=== PATIENT | female | born 1940 | race Caucasian/White ===

== ENCOUNTER 2021-01-10 08:57 | Inpatient (IN) | payer MEDICARE, MEDICAID, SELFPAY ==
[2021-01-10] VITALS (9 sets, daily range): BP systolic 100–140; BP diastolic 47–67; PULSE 66–100; RESP 14–20; TEMP 36.2–39.2; O2SAT 93–98; BMI 34.4
--- NOTE | ~2021-01-10 | XR_ITS ---
EXAMINATION: XR CHEST CLINICAL INFORMATION: Fever COMPARISON: Chest radiograph 04/22/2019, 02/20/2019, 12/02/2018 TECHNIQUE: Portable upright AP view of the chest was obtained. FINDINGS: The lungs are clear and there is no airspace consolidation or groundglass opacity. With The costophrenic sulci are well-defined and there is no effusion. The heart is normal in size. The vascularity is normal. The hilar and mediastinal contours are stable. No acute bony abnormality. XR/XR chest 1V IMPRESSION: Unremarkable examination.
--- NOTE | 2021-01-10 09:33 | ED_ITS ---
HPI - Fever General Chief Complaint: Fever Stated Complaint: fever Time Seen by Provider: 01/10/21 09:26 Source: patient Mode of arrival: EMS Limitations: no limitations History of Present Illness HPI Narrative: 80 y/o female with history of Alzheimer's dementia, psychosis, diabetes, hx UTI who presents to the ED from [facility] via EMS with fever of 100.2. Per staff at [facility] she is a little slower to respond than usual but otherwise has no changes. For EMS patient had SpO2 93% so she was placed on supplemental O2 with good effect. She offers no physical complaints. She denies SOB or cough. No chest or abdominal pain. History of limited due to dementia. On arrival to the ER patient is febrile to 102.5 and hemodynamically stable. She seems to be at her baseline mental status on arrival, oriented but needs assistance with all ADL's. MD elicited complaint: fever Onset (ago): hour(s) Exacerbating factors: nothing Associated symptoms: denies other symptoms Treatments prior to arrival fever: none Related Data Home Medications Medication Instructions Recorded Confirmed acetaminophen 325 mg capsule 650 mg PO Q4H PRN 01/10/21 01/10/21 aluminum-mag hydroxide-simethicone 10 ml PO Q6H PRN 01/10/21 01/10/21 200 mg-200 mg-20 mg/5 mL oral susp (Maalox Advanced) aspirin 81 mg tablet,delayed 81 mg PO DAILY 01/10/21 01/10/21 release cyanocobalamin (vitamin B-12) 1,000 mcg PO DAILY 01/10/21 01/10/21 1,000 mcg tablet fluticasone propionate 110 2 puff INHALATION BID 01/10/21 01/10/21 mcg/actuation HFA aerosol inhaler (Flovent HFA) fluticasone propionate 50 2 spray INTRANASAL BID 01/10/21 01/10/21 mcg/actuation nasal spray,suspension folic acid 1 mg tablet 1 mg PO DAILY 01/10/21 01/10/21 gabapentin 400 mg capsule 1 cap PO BEDTIME 01/10/21 01/10/21 lurasidone 40 mg tablet (Latuda) 1 tab PO BEDTIME 01/10/21 01/10/21 lurasidone 60 mg tablet (Latuda) 1 tab PO DAILY 01/10/21 01/10/21 magnesium oxide 800 mg PO DAILY 01/10/21 01/10/21 multivitamin with minerals-ferrous 1 tab PO DAILY 01/10/21 01/10/21 sulfate 15 mg iron tablet nystatin 100,000 unit/gram topical 1 applic TOPICAL BID-TID 01/10/21 01/10/21 powder (Nystop) peg 400-propylene glycol 0.4 %-0.3 2 drp OPHTHALMIC (EYE) Q4H PRN 01/10/21 01/10/21 % eye gel drops (Systane Gel) ropinirole 0.5 mg tablet 1 tab PO BEDTIME 01/10/21 01/10/21 simvastatin 20 mg tablet 1 tab PO BEDTIME 01/10/21 01/10/21 sodium chloride 1,000 mg soluble 1,000 mg PO BID 01/10/21 01/10/21 tablet Allergies Allergy/AdvReac Type Severity Reaction Status Date / Time Penicillins Allergy Mild UNKNOWN Unverified 02/22/20 14:50 lisinopril [LISINOPRIL] Allergy Unknown COUGH Unverified 02/22/20 14:50 morphine [MORPHINE] Allergy Unknown YRS AGO ? Unverified 02/22/20 14:50 N/V penicillin V Allergy Unknown Unverified 06/05/19 00:00 celecoxib [From CELEBREX] AdvReac Unknown GI UPSET Unverified 02/22/20 14:50 Review of Systems 2 Constitutional: Constitutional: Denies chills, Reports fever(s), Denies headache(s) and Reports malaise Eyes: Eyes: Reports no additional eye complaints ENT: Denies dizziness, Denies headache(s) and Denies sore throat Cardiovascular: Cardiovascular: Denies chest pain and Denies dyspnea Respiratory: Respiratory: Denies chest congestion, Denies cough and Denies dyspnea Gastrointestinal: Gastrointestinal: Denies abdominal pain, Denies diarrhea, Denies nausea and Denies vomiting Genitourinary: Genitourinary: Denies dysuria Musculoskeletal: Musculoskeletal: Denies myalgias Integumentary/Breasts: Skin/Breast: Denies rash Neurologic: Denies dizziness and Denies headache(s) [facility] Past Medical History Attestation statement: The following information was validated with the patient. Medical History Acute kidney failure Alzheimer disease Anemia Anorexia Aphasia Diabetes Hyperlipemia Unspecified psychosis Social History Social History Advance Directives: Yes Advance Directives on File: Yes Advance Directives Date on File: 01/10/21 Physical Exam Vital Signs: Vital Signs: Last Vital Signs Temp 99.5 F 01/10/21 10:58 Pulse 81 01/10/21 10:58 Resp 19 01/10/21 10:58 BP 121/53 L 01/10/21 10:58 Pulse Ox 98 01/10/21 10:58 Body Mass Index 34.4 Appearance: Alert elderly female laying in bed. Oriented X3. No acute di stress. Eyes: Pupils equal, round and reactive to light. Right eye with moderate amount of yellow discharge, slight scleral injection laterally. ENT: Pharynx normal. Neck: Normal inspection. Neck supple. CVS: Normal heart rate and rhythm. Pulses normal. Respiratory: No respiratory distress. Breath sounds normal. Abdomen: Obese, Soft and nontender. +BS x4 Skin: Skin warm and dry. Normal skin color. Normal skin turgor. No rashes. Extremities: No lower extremity edema. Neuro: Oriented X 3. Follow simple commands. Moves all extremities but very weak throughout. Non-focal. Course Course Course Narrative: 80 y/o female with history of Alzheimer's dementia, DM, hx psychosis presenting with fever of 102.5. She reportedly has history of UTI. She had SpO2 93% on arrival, 99% on 1L NC. Will trial off of O2. No respiratory symptoms and lungs are clear. Will panculture, give Tylenol and IVF. Concern for UTI and PNA. MOLST reviewed. She is a full code. Reevaluation(s) Reevaluation #1: Fever improved with Tylenol. Labs showing WBC 15.8K. UA is positive for infection. IV rocephin ordered. CXR is clear. COVID negative. Reevaluation #2: BUN/Cr mildly elevated, most likely pre-renal in setting of fever and infection. Doubt obstructive causes without any pain. Remains hemodynamically stable. s/p 1L IVF. Lactic acid normal. Not severe sepsis. Will plan for admission for treatment of UTI and VIKA. MDM - Fever Lab Data Result diagrams: 01/10/21 11:24 01/10/21 11:24 Labs: Lab Results 01/10/21 01/10/21 01/10/21 Range/Units 10:01 10:25 11:24 WBC 15.8 H (4.8-10.8) X10*3/uL RBC 3.55 L (4.20-5.50) X10*6/uL Hgb 10.0 L (12.0-16.0) g/dl Hct 31.2 L (37-47) % MCV 87.9 (80-98) fL MCH 28.2 (27.0-33.0) pg MCHC 32.1 (31.0-35.0) g/dl RDW 15.6 (11.0-16.0) % Plt Count 243 (160-400) X10*3/uL MPV 9.7 (9.4-12.3) fL Immature Gran % (Auto) 0.6 H (0.0-0.4) % Neut % (Auto) 83.2 H (45-73) % Lymph % (Auto) 7.2 L (20-40) % [place] % (Auto) 8.4 (2-11) % Eos % (Auto) 0.4 (0-4) % Baso % (Auto) 0.2 (0-2) % Lymph # (Auto) 1.1 L (1.2-4.9) X10*3/uL [place] # (Auto) 1.3 H (0.1-1.2) X10*3/uL Eos # (Auto) 0.1 (0.0-0.4) X10*3/uL Baso # (Auto) 0.0 (0.0-0.2) X10*3/uL Abs Immat Gran (auto) 0.09 H (0.00-0.03) X10*3/uL Absolute Neuts (auto) 13.1 H (2.0-8.3) X10*3/uL Absolute Nucleated RBC 0.000 (0.0-0.012) X10*3/uL Nucleated RBC % (auto) 0.0 (0.0-0.2) /100WBC Sodium (135-145) mmol/L Potassium (3.3-5.1) mmol/L Chloride (96-108) mmol/L Carbon Dioxide (22-29) mmol/L Anion Gap (12-20) BUN (9-16) mg/dL Creatinine (0.5-1.4) mg/dL Estim Creat Clear Calc Estimated GFR Random Glucose (60-115) mg/dL Lactic Acid (0.5-2.0) mmol/L Calcium (8.4-10.2) mg/dL Magnesium (1.6-2.6) mg/dL Total Bilirubin (0.0-1.0) mg/dL Direct Bilirubin (0.0-0.5) mg/dL AST (5-31) U/L ALT (0-31) U/L Alkaline Phosphatase (39-117) U/L Total Protein (6.5-8.0) g/dL Albumin (3.5-5.0) g/dL Urine Color YELLOW Urine Appearance CLOUDY Urine pH 6.0 (5.0-8.0) Ur Specific [place] 1.020 (1.005-1.025) Urine Protein 2+ H (NEG-TRACE) MG/DL Urine Glucose (UA) NEG (NEG) MG/DL Urine Ketones NEG (NEG) MG/DL Urine Blood TRACE (NEG) Urine Nitrite NEG (NEG) Ur Leukocyte Esterase 1+ H (NEG) Urine RBC 0-2 (0) /HPF Urine WBC 15-29 H (0-4) /HPF Urine WBC Clumps NOTED Ur Squamous Epith Cells TRACE /LPF Urine Bacteria 3+ /LPF Coronavirus (PCR) NEGATIVE (Negative) Influenza Type A (PCR) NEGATIVE (Negative) Influenza Type B (PCR) NEGATIVE (Negative) RSV RNA Qual (PCR) NEGATIVE (Negative) 01/10/21 01/10/21 01/10/21 Range/Units 11:24 11:24 11:24 WBC (4.8-10.8) X10*3/uL RBC (4.20-5.50) X10*6/uL Hgb (12.0-16.0) g/dl Hct (37-47) % MCV (80-98) fL MCH (27.0-33.0) pg MCHC (31.0-35.0) g/dl RDW (11.0-16.0) % Plt Count (160-400) X10*3/uL MPV (9.4-12.3) fL Immature Gran % (Auto) (0.0-0.4) % Neut % (Auto) (45-73) % Lymph % (Auto) (20-40) % [place] % (Auto) (2-11) % Eos % (Auto) (0-4) % Baso % (Auto) (0-2) % Lymph # (Auto) (1.2-4.9) X10*3/uL [place] # (Auto) (0.1-1.2) X10*3/uL Eos # (Auto) (0.0-0.4) X10*3/uL Baso # (Auto) (0.0-0.2) X10*3/uL Abs Immat Gran (auto) (0.00-0.03) X10*3/uL Absolute Neuts (auto) (2.0-8.3) X10*3/uL Absolute Nucleated RBC (0.0-0.012) X10*3/uL Nucleated RBC % (auto) (0.0-0.2) /100WBC Sodium 138 (135-145) mmol/L Potassium 4.5 (3.3-5.1) mmol/L Chloride 106 (96-108) mmol/L Carbon Dioxide 23 (22-29) mmol/L Anion Gap 14 (12-20) BUN 25 H (9-16) mg/dL Creatinine 1.42 H (0.5-1.4) mg/dL Estim Creat Clear Calc 22.8 Estimated GFR 35 Random Glucose 164 H (60-115) mg/dL Lactic Acid 0.9 (0.5-2.0) mmol/L Calcium 7.8 L (8.4-10.2) mg/dL Magnesium 2.0 (1.6-2.6) mg/dL Total Bilirubin 0.2 (0.0-1.0) mg/dL Direct Bilirubin < 0.2 (0.0-0.5) mg/dL AST 15 (5-31) U/L ALT 28 (0-31) U/L Alkaline Phosphatase 173 H (39-117) U/L Total Protein 5.5 L (6.5-8.0) g/dL Albumin 2.9 L (3.5-5.0) g/dL Urine Color Urine Appearance Urine pH (5.0-8.0) Ur Specific [place] (1.005-1.025) Urine Protein (NEG-TRACE) MG/DL Urine Glucose (UA) (NEG) MG/DL Urine Ketones (NEG) MG/DL Urine Blood (NEG) Urine Nitrite (NEG) Ur Leukocyte Esterase (NEG) Urine RBC (0) /HPF Urine WBC (0-4) /HPF Urine WBC Clumps Ur Squamous Epith Cells /LPF Urine Bacteria /LPF Coronavirus (PCR) (Negative) Influenza Type A (PCR) (Negative) Influenza Type B (PCR) (Negative) RSV RNA Qual (PCR) (Negative) Discharge Plan Discharge Clinical Impression: Acute UTI, VIKA (acute kidney injury) Patient Disposition: Admitted As Inpatient
[2021-01-10] MEDS: 0.9 % Sodium Chloride 1,000 ML 999 ML IVCONT (10:03)
[2021-01-10] MEDS: Acetaminophen 325 MG TABLET 975 MG PO (10:14)
[2021-01-10 10:34] LABS: Glucose Urine UA NEG (NEG); Leukocyte Esterase Urine 1+ (NEG); Nitrite Urine NEG (NEG); UACC Culture Trigger YES; Urine Blood TRACE (NEG); Urine Ketones NEG (NEG); Urine Protein 2+ MG/DL (NEG-TRACE)
[2021-01-10 10:36] LABS: Appearance Urine CLOUDY; Color Urine YELLOW
[2021-01-10 10:48] LABS: Bacteria Urine 3+ /LPF; RBC Urine 0-2 /HPF (0); Squamous Epithelial Cell Urine TRACE /LPF; WBC Clumps Urine NOTED
--- NOTE | 2021-01-10 11:30 | HE.PHANOTE ---
Pharmacy Consult ? Medication Reconciliation Pharmacy has completed the medication reconciliation and there were no significant medication issues requiring provider attention.? Gale MenardD
[2021-01-10 11:31] LABS: MANUAL DIFF FLAG NO
[2021-01-10 11:35] LABS: Basophils Percent Auto 0.2 % (0-2); Eosinophils Absolute Auto 0.1 X10*3/uL (0.0-0.4); Eosinophils Percent Auto 0.4 % (0-4); Hematocrit 31.2 % (37-47); Imm Gran Abs Auto 0.09 X10*3/uL (0.00-0.03); Imm Gran Pct Auto 0.6 % (0.0-0.4); Lymphocytes Absolute Auto 1.1 X10*3/uL (1.2-4.9); Lymphocytes Percent Auto 7.2 % (20-40); Mean Corpuscular HGB Conc 32.1 g/dl (31.0-35.0); Mean Corpuscular Hemoglobin 28.2 pg (27.0-33.0); Mean Corpuscular Volume 87.9 fL (80-98); Mean Platelet Volume 9.7 fL (9.4-12.3); Monocytes Absolute Auto 1.3 X10*3/uL (0.1-1.2); Monocytes Percent Auto 8.4 % (2-11); Neutrophils Absolute Auto 13.1 X10*3/uL (2.0-8.3); Neutrophils Percent Auto 83.2 % (45-73); Platelet Count 243 X10*3/uL (160-400); Red Blood Count 3.55 X10*6/uL (4.20-5.50); Red Cell Distribution Width 15.6 % (11.0-16.0); White Blood Count 15.8 X10*3/uL (4.8-10.8)
[2021-01-10 11:43] LABS: Influenza A PCR NEGATIVE (Negative); Influenza B PCR NEGATIVE (Negative); Resp Syncy Virus RNA Qual PCR NEGATIVE (Negative); SARS COV2 PCR INHOUSE NEGATIVE (Negative)
[2021-01-10 11:55] LABS: Lactic Acid 0.9 mmol/L (0.5-2.0)
[2021-01-10 11:56] LABS: Anion Gap 14 (12-20); Blood Urea Nitrogen 25 mg/dL (9-16); Calcium 7.8 mg/dL (8.4-10.2); Carbon Dioxide 23 mmol/L (22-29); Chloride 106 mmol/L (96-108); Creatinine Clr Calc Pharmacy 22.8; Estimated Glomerular Filt Rate 35; Glucose Random 164 mg/dL (60-115); Potassium 4.5 mmol/L (3.3-5.1); Sodium 138 mmol/L (135-145)
[2021-01-10 12:17] LABS: Alanine Aminotransferase 28 U/L (0-31); Albumin Level 2.9 g/dL (3.5-5.0); Alkaline Phosphatase 173 U/L (39-117); Aspartate Amino Transferase 15 U/L (5-31); Bilirubin Direct < 0.2 mg/dL (0.0-0.5); Bilirubin Total 0.2 mg/dL (0.0-1.0); Total Protein 5.5 g/dL (6.5-8.0)
[2021-01-10] MEDS: cefTRIAXone sodium 1 GM in 0.9 % Sodium Chloride 50 ML IV (12:29)
--- NOTE | 2021-01-10 14:55 | P.HPHOSP_ITS ---
History of Present Illness Date of Service: 01/10/21 Chief Complaint: Altered mental status and fever 80-year-old female sent in from halfway for fever and altered mental status. Patient is long-term resident, was noted to be sleepier than usual, had fever of 100.2F. patient is poor historian due to dementia with psychoric features. she was sent to ED, in ED found to have sepsis with fever of 102.5, WBC 15, positive UA. given fluids, rocephin. Review of Systems Review of Systems: Constitutional: see hpi Eyes: denies blurry vision ENT: denies sore throat CVS: denies chest pain Respiratory: Denies dyspnea GI: no abdominal pain : denies dysuria MSK: denies neck pain Skin: denies rash Neuro: denies specific motor weakness Psych: denies suicidal ideation Endocrine: denies heat/cold intolerance Hematologic: denies easy bleeding Allergy: denies hives PMFSH Medical History Acute kidney failure Alzheimer disease Anemia Anorexia Aphasia Diabetes Hyperlipemia Unspecified psychosis Family history: reviewed and not pertinent Social History Advance Directives: Yes Advance Directives on File: Yes Advance Directives Date on File: 01/10/21 Meds Allergies Allergy/AdvReac Type Severity Reaction Status Date / Time Penicillins Allergy Mild UNKNOWN Unverified 02/22/20 14:50 lisinopril [LISINOPRIL] Allergy Unknown COUGH Unverified 02/22/20 14:50 morphine [MORPHINE] Allergy Unknown YRS AGO ? Unverified 02/22/20 14:50 N/V penicillin V Allergy Unknown Unverified 06/05/19 00:00 celecoxib [From CELEBREX] AdvReac Unknown GI UPSET Unverified 02/22/20 14:50 Active Medications: Current Medications Generic Name Dose Route Start Last Admin Trade Name Freq PRN Reason Stop Dose Admin Acetaminophen 650 mg 01/10/21 14:45 Acetaminophen 325 Mg Tablet PO Q4H PRN Pain (Scale Score 1-3) Al Hydroxide/Mg Hydroxide 10 ml 01/10/21 14:45 Magnesium Hydrox/Alum Hydrox 30 Ml Oral.Susp PO Q6H PRN Heartburn Aspirin 81 mg 01/11/21 09:00 Aspirin Enteric Coated 81 Mg Tablet. PO DAILY [facility] Cyanocobalamin 1,000 mcg 01/11/21 09:00 Cyanocobalamin (Vitamin B-12) 1,000 Mcg Tablet PO DAILY [facility] Fluticasone Propionate 2 spray 01/10/21 21:00 Fluticasone Propionate Nasal 16 Gm [place] NOSTRIL-B BID [facility] Folic Acid 1 mg 01/11/21 09:00 Folic Acid 1 Mg Tablet PO DAILY [facility] Gabapentin 400 mg 01/10/21 21:00 Gabapentin 400 Mg Capsule PO BEDTIME [facility] Lurasidone HCl 40 mg 01/10/21 21:00 Lurasidone Hcl 40 Mg Tablet PO BEDTIME [facility] Magnesium Oxide 800 mg 01/11/21 09:00 Magnesium Oxide 400 Mg Tablet PO DAILY [facility] Non-Formulary Medication 2 puff 01/10/21 21:00 Fluticasone Propionate [Flovent Hfa] INHALE BID [facility] Non-Formulary Medication 1 tab 01/11/21 09:00 Lurasidone [Latuda] PO DAILY [facility] Non-Formulary Medication 1 tab 01/11/21 09:00 [id number] Sulfate PO DAILY [facility] Non-Formulary Medication 2 drop 01/10/21 14:45 Peg 400-Propylene Glycol [Systane Gel] EYE-BOTH Q4H PRN TEARING EYES Non-Formulary Medication 1 tab 01/10/21 21:00 Simvastatin PO BEDTIME [facility] Non-Formulary Medication 1,000 mg 01/10/21 21:00 Sodium Chloride PO BID [facility] Nystatin 1 appl 01/10/21 14:45 Nystatin Powder 15 Gm Bottle TOPICAL BID-TID [facility] Protocol Pharmacy Consult 1 each 01/10/21 09:26 Consult Rx Perform Med Rec MISCELLANE ONCE PRN Consult order Ropinirole HCl 0.5 mg 01/10/21 21:00 Ropinirole Hcl 0.5 Mg Tablet PO BEDTIME [facility] Home Medications Medication Instructions Recorded Confirmed Last Taken Type acetaminophen 325 mg capsule 650 mg PO Q4H PRN 01/10/21 01/10/21 Unknown History aluminum-mag hydroxide-simethicone 10 ml PO Q6H PRN 01/10/21 01/10/21 Unknown History 200 mg-200 mg-20 mg/5 mL oral susp (Maalox Advanced) aspirin 81 mg tablet,delayed 81 mg PO DAILY 01/10/21 01/10/21 Unknown History release cyanocobalamin (vitamin B-12) 1,000 mcg PO DAILY 01/10/21 01/10/21 Unknown History 1,000 mcg tablet fluticasone propionate 110 2 puff INHALATION BID 01/10/21 01/10/21 Unknown Hi story mcg/actuation HFA aerosol inhaler (Flovent HFA) fluticasone propionate 50 2 spray INTRANASAL BID 01/10/21 01/10/21 Unknown History mcg/actuation nasal spray,suspension folic acid 1 mg tablet 1 mg PO DAILY 01/10/21 01/10/21 Unknown History gabapentin 400 mg capsule 1 cap PO BEDTIME 01/10/21 01/10/21 Unknown History lurasidone 40 mg tablet (Latuda) 1 tab PO BEDTIME 01/10/21 01/10/21 Unknown History lurasidone 60 mg tablet (Latuda) 1 tab PO DAILY 01/10/21 01/10/21 Unknown History magnesium oxide 800 mg PO DAILY 01/10/21 01/10/21 Unknown History multivitamin with minerals-ferrous 1 tab PO DAILY 01/10/21 01/10/21 Unknown History sulfate 15 mg iron tablet nystatin 100,000 unit/gram topical 1 applic TOPICAL BID-TID 01/10/21 01/10/21 Unknown History powder (Nystop) peg 400-propylene glycol 0.4 %-0.3 2 drp OPHTHALMIC (EYE) Q4H PRN 01/10/21 01/10/21 Unknown History % eye gel drops (Systane Gel) ropinirole 0.5 mg tablet 1 tab PO BEDTIME 01/10/21 01/10/21 Unknown History simvastatin 20 mg tablet 1 tab PO BEDTIME 01/10/21 01/10/21 Unknown History sodium chloride 1,000 mg soluble 1,000 mg PO BID 01/10/21 01/10/21 Unknown His tory tablet Physical Exam Vital Signs and Narrative: Vital Signs: Last Vital Signs Temp 98.6 F 01/10/21 14:11 Pulse 71 01/10/21 14:11 Resp 18 01/10/21 14:11 BP 105/53 L 01/10/21 14:11 Pulse Ox 97 01/10/21 14:11 Body Mass Index 34.4 General: no acute distress, lethargic, ill appearing HEENT: atraumatic Neck: normal to visual inspection CVS: S1, S2, RRR Resp: CTA bilateral Chest: non tender GI: soft, non tender, non distended : no CVA tenderness Skin: no rashes Extremities: no edema Neuro: Oriented X3 but vague/poor historian, grossly intact Psych: flat affect Results Labs CBC and Chem 7: 01/10/21 11:24 01/10/21 11:24 Labs: Laboratory Results - last 24 hr 01/10/21 01/10/21 01/10/21 10:01 10:25 11:24 MCV 87.9 MCH 28.2 MCHC 32.1 RDW 15.6 Plt Count 243 MPV 9.7 Immature Gran % (Auto) 0.6 H Neut % (Auto) 83.2 H Lymph % (Auto) 7.2 L [place] % (Auto) 8.4 Eos % (Auto) 0.4 Baso % (Auto) 0.2 Lymph # (Auto) 1.1 L [place] # (Auto) 1.3 H Eos # (Auto) 0.1 Baso # (Auto) 0.0 Abs Immat Gran (auto) 0.09 H Absolute Neuts (auto) 13.1 H Absolute Nucleated RBC 0.000 Nucleated RBC % (auto) 0.0 Anion Gap Estim Creat Clear Calc Estimated GFR Random Glucose Lactic Acid Calcium Magnesium Total Bilirubin Direct Bilirubin AST ALT Alkaline Phosphatase Total Protein Albumin Urine Color YELLOW Urine Appearance CLOUDY Urine pH 6.0 Ur Specific [place] 1.020 Urine Protein 2+ H Urine Glucose (UA) NEG Urine Ketones NEG Urine Blood TRACE Urine Nitrite NEG Ur Leukocyte Esterase 1+ H Urine RBC 0-2 Urine WBC 15-29 H Urine WBC Clumps NOTED Ur Squamous Epith Cells TRACE Urine Bacteria 3+ Coronavirus (PCR) NEGATIVE Influenza Type A (PCR) NEGATIVE Influenza Type B (PCR) NEGATIVE RSV RNA Qual (PCR) NEGATIVE 01/10/21 01/10/21 01/10/21 11:24 11:24 11:24 MCV MCH MCHC RDW Plt Count MPV Immature Gran % (Auto) Neut % (Auto) Lymph % (Auto) [place] % (Auto) Eos % (Auto) Baso % (Auto) Lymph # (Auto) [place] # (Auto) Eos # (Auto) Baso # (Auto) Abs Immat Gran (auto) Absolute Neuts (auto) Absolute Nucleated RBC Nucleated RBC % (auto) Anion Gap 14 Estim Creat Clear Calc 22.8 Estimated GFR 35 Random Glucose 164 H Lactic Acid 0.9 Calcium 7.8 L Magnesium 2.0 Total Bilirubin 0.2 Direct Bilirubin < 0.2 AST 15 ALT 28 Alkaline Phosphatase 173 H Total Protein 5.5 L Albumin 2.9 L Urine Color Urine Appearance Urine pH Ur Specific [place] Urine Protein Urine Glucose (UA) Urine Ketones Urine Blood Urine Nitrite Ur Leukocyte Esterase Urine RBC Urine WBC Urine WBC Clumps Ur Squamous Epith Cells Urine Bacteria Coronavirus (PCR) Influenza Type A (PCR) Influenza Type B (PCR) RSV RNA Qual (PCR) Imaging Radiologist's Impressions: Impressions Chest X-Ray 01/10/21 09:27 IMPRESSION: Unremarkable examination. Assessment and Plan (1) Acute UTI: Status: Acute 80F presented with fever sepsis present on arrival due to UTI complicated by metabolic encephalopathy and acute kidney injury rocpehin IVF monitor bmp follow up cultures alzheimers dementia with psychotic features latuda history of DM no longer on meds, check a1c hld statin history of anorexia resolved, no longer using G tube Quality Stroke Does the patient have a stroke diagnosis?: No VTE Prior VTE?: No VTE Risk Level:: Medical - moderate - high VTE Device Contraindication: Treatment Not Indicated VTE Drug Contraindication: N/A - Med Ordered
--- NOTE | 2021-01-10 16:47 | PC.NURSE ---
1st call up to floor. jessica grant to take report.
[2021-01-10] MEDS: Enoxaparin Sodium 40 MG/0.4 ML SYRINGE SUBCUT (17:29)
[2021-01-10] MEDS: 0.9 % Sodium Chloride Flush 3 ML SYRINGE IVFLUSH (17:29)
[2021-01-10] MEDS: Lactated Ringers 1,000 ML 80 ML IVCONT (17:32)
[2021-01-10] MEDS: Artificial Tears 15 ML DROPS 2 DROP EYE-BOTH (17:38)
[2021-01-10] MEDS: Nystatin Powder 15 GM BOTTLE 1 APPL TOPICAL ×2 (17:38→21:31)
[2021-01-10] MEDS: Fluticasone Propionate 100 MCG BLST.W.DEV 2 PUFF INHALE (20:23)
[2021-01-10] MEDS: Gabapentin 400 MG CAPSULE PO (21:22)
[2021-01-10] MEDS: Sodium Chloride Tab 1 GM TABLET PO (21:22)
[2021-01-10] MEDS: Fluticasone Propionate Nasal 16 GM SPRAY 2 SPRAY NOSTRIL-B (21:22)
[2021-01-10] MEDS: Atorvastatin Calcium 10 MG TABLET PO (21:22)
[2021-01-10] MEDS: rOPINIRole HCL 0.5 MG TABLET PO (21:22)
[2021-01-10] MEDS: Lurasidone HCl 40 MG TABLET PO (22:17)
[2021-01-11] MEDS: Lactated Ringers 1,000 ML 80 ML IVCONT ×2 (04:56→16:34)
[2021-01-11] MEDS: cefTRIAXone sodium 1 GM in 0.9 % Sodium Chloride 50 ML IV (05:42)
[2021-01-11 06:53] LABS: Hematocrit 34.7 % (37-47); Hemoglobin 10.7 g/dl (12.0-16.0); Mean Corpuscular HGB Conc 30.8 g/dl (31.0-35.0); Mean Corpuscular Hemoglobin 28.2 pg (27.0-33.0); Mean Corpuscular Volume 91.3 fL (80-98); Red Cell Distribution Width 15.6 % (11.0-16.0)
[2021-01-11 07:27] LABS: Anion Gap 16 (12-20); Blood Urea Nitrogen 24 mg/dL (9-16); Calcium 8.3 mg/dL (8.4-10.2); Carbon Dioxide 20 mmol/L (22-29); Chloride 107 mmol/L (96-108); Creatinine Clr Calc Pharmacy 30.5; Estimated Glomerular Filt Rate 50; Glucose Random 94 mg/dL (60-115); Potassium 4.5 mmol/L (3.3-5.1); Sodium 138 mmol/L (135-145)
[2021-01-11 07:52] LABS: Estimated Average Glucose 140 mg/dL; Hemoglobin A1c % 6.5 %
[2021-01-11 07:53] VITALS: BP 142/56; PULSE 53; RESP 18; TEMP 35.9; O2SAT 97
[2021-01-11] MEDS: Nystatin Powder 15 GM BOTTLE 1 APPL TOPICAL ×2 (09:42→21:07)
[2021-01-11] MEDS: Lurasidone HCl 40 MG TABLET PO ×2 (09:42→21:00)
[2021-01-11] MEDS: Aspirin Enteric Coated 81 MG TABLET.DR PO (09:42)
[2021-01-11] MEDS: Magnesium Oxide 400 MG TABLET 800 MG PO (09:42)
[2021-01-11] MEDS: Folic Acid 1 MG TABLET PO (09:42)
[2021-01-11] MEDS: Fluticasone Propionate Nasal 16 GM SPRAY 2 SPRAY NOSTRIL-B ×2 (09:42→21:01)
[2021-01-11] MEDS: Lurasidone HCl 20 MG TABLET PO (09:42)
[2021-01-11] MEDS: Sodium Chloride Tab 1 GM TABLET PO (09:43)
[2021-01-11] MEDS: 0.9 % Sodium Chloride Flush 3 ML SYRINGE IVFLUSH ×2 (09:43→21:01)
[2021-01-11] MEDS: Cyanocobalamin (Vitamin B-12) 1,000 MCG TABLET 1000 MCG PO (09:43)
--- NOTE | 2021-01-11 09:49 | HO.PM.IMPN ---
Subjective Subjective Date of Service: 01/11/21 Interval History: tired, but improved Constitutional Constitutional: Reports no additional constitutional complaints Cardiovascular Cardiovascular: Reports no additional cardiovascular complaints Physical Exam Vital Signs: Vital Signs: Last Vital Signs Temp 96.7 F L 01/11/21 07:53 Pulse 53 01/11/21 07:53 Resp 18 01/11/21 07:53 BP 142/56 H 01/11/21 07:53 Pulse Ox 97 01/11/21 07:53 Body Mass Index 34.4 General: letharigc O X 3, no acute distress Resp: CTA bilateral CVS: S1,S2,RRR GI: soft, non tender, non distended Neuro: motor grossly intact Psych: appropriate affect Objective Data Current Medications Generic Name Dose Route Start Last Admin Trade Name Freq PRN Reason Stop Dose Admin Acetaminophen 650 mg 01/10/21 14:45 Acetaminophen 325 Mg Tablet PO Q4H PRN Pain (Scale Score 1-3) Al Hydroxide/Mg Hydroxide 10 ml 01/10/21 14:45 Magnesium Hydrox/Alum Hydrox 30 Ml Oral.Susp PO Q6H PRN Heartburn Artificial Tears 2 drop 01/10/21 15:21 01/10/21 17:38 Artificial Tears 15 Ml Drops EYE-BOTH 2 drop Q4H PRN Administration TEARING EYES Aspirin 81 mg 01/11/21 09:00 01/11/21 09:42 Aspirin Enteric Coated 81 Mg Tablet.Dr PO 81 mg DAILY YAZAN Administration Atorvastatin Calcium 10 mg 01/10/21 21:00 01/10/21 21:22 Atorvastatin Calcium 10 Mg Tablet PO 10 mg BEDTIME YAZAN Administration Cyanocobalamin 1,000 mcg 01/11/21 09:00 01/11/21 09:43 Cyanocobalamin (Vitamin B-12) 1,000 Mcg Tablet PO 1,000 mcg DAILY YAZAN Administration Enoxaparin Sodium 40 mg 01/10/21 15:00 01/10/21 17:29 Enoxaparin Sodium 40 Mg/0.4 Ml Syringe SUBCUT 40 mg Q24H YAZAN Administration Fluticasone Propionate 2 puff 01/10/21 20:00 01/10/21 20:23 Fluticasone Propionate 100 Mcg Blst.W.Dev INHALE 2 puff RBID YAZAN Administration Fluticasone Propionate 2 spray 01/10/21 21:00 01/11/21 09:42 Fluticasone Propionate Nasal 16 Gm [place] NOSTRIL-B 2 spray BID YAZAN Administration Folic Acid 1 mg 01/11/21 09:00 01/11/21 09:42 Folic Acid 1 Mg Tablet PO 1 mg DAILY YAZAN Administration Gabapentin 400 mg 01/10/21 21:00 01/10/21 21:22 Gabapentin 400 Mg Capsule PO 400 mg BEDTIME YAZAN Administration Ceftriaxone Sodium 1 gm/ 50 mls @ 100 mls/hr 01/11/21 06:00 01/11/21 06:17 Sodium Chloride IV Infused Q24H YAZAN Infusion Lactated Ringer's 1,000 mls @ 80 mls/hr 01/10/21 15:00 01/11/21 04:56 Lr IVCONT 80 mls/hr .[id number] YAZAN Administration Lurasidone HCl 40 mg 01/10/21 21:00 01/11/21 09:42 Lurasidone Hcl 40 Mg Tablet PO 40 mg BID YAZAN Administration Lurasidone HCl 20 mg 01/11/21 09:00 01/11/21 09:42 Lurasidone Hcl 20 Mg Tablet PO 20 mg DAILY YAZAN Administration Magnesium Oxide 800 mg 01/11/21 09:00 01/11/21 09:42 Magnesium Oxide 400 Mg Tablet PO 800 mg DAILY YAZAN Administration Multivitamins/Minerals 1 tab 01/11/21 09:00 01/11/21 09:43 Multivitamin With Minerals Tablet PO 1 tab DAILY YAZAN Administration Nystatin 1 appl 01/10/21 14:45 01/11/21 09:42 Nystatin Powder 15 Gm Bottle TOPICAL 1 appl BID YAZAN Administration Protocol Pharmacy Consult 1 each 01/10/21 09:26 Consult Rx Perform Med Rec MISCELLANE ONCE PRN Consult order Ropinirole HCl 0.5 mg 01/10/21 21:00 01/10/21 21:22 Ropinirole Hcl 0.5 Mg Tablet PO 0.5 mg BEDTIME YAZAN Administration Sodium Chloride 1 gm 01/10/21 21:00 01/11/21 09:43 Sodium Chloride Tab 1 Gm Tablet PO 1 gm BID YAZAN Administration Sodium Chloride 3 ml 01/10/21 16:00 01/11/21 09:43 0.9 % Sodium Chloride Flush 3 Ml Syringe IVFLUSH 3 ml QSHIFT YAZAN Administration Labs CBC & Chem 7: 01/11/21 06:13 01/11/21 06:13 Labs: Laboratory Results - last 24 hr 01/10/21 01/10/21 01/10/21 10:01 10:25 11:24 MCV 87.9 MCH 28.2 MCHC 32.1 RDW 15.6 Plt Count 243 MPV 9.7 Immature Gran % (Auto) 0.6 H Neut % (Auto) 83.2 H Lymph % (Auto) 7.2 L [place] % (Auto) 8.4 Eos % (Auto) 0.4 Baso % (Auto) 0.2 Lymph # (Auto) 1.1 L [place] # (Auto) 1.3 H Eos # (Auto) 0.1 Baso # (Auto) 0.0 Abs Immat Gran (auto) 0.09 H Absolute Neuts (auto) 13.1 H Absolute Nucleated RBC 0.000 Nucleated RBC % (auto) 0.0 Anion Gap Estim Creat Clear Calc Estimated GFR Random Glucose Estimat Average Glucose Hemoglobin A1c % Lactic Acid Calcium Magnesium Total Bilirubin Direct Bilirubin AST ALT Alkaline Phosphatase Total Protein Albumin Urine Color YELLOW Urine Appearance CLOUDY Urine pH 6.0 Ur Specific [place] 1.020 Urine Protein 2+ H Urine Glucose (UA) NEG Urine Ketones NEG Urine Blood TRACE Urine Nitrite NEG Ur Leukocyte Esterase 1+ H Urine RBC 0-2 Urine WBC 15-29 H Urine WBC Clumps NOTED Ur Squamous Epith Cells TRACE Urine Bacteria 3+ Coronavirus (PCR) NEGATIVE Influenza Type A (PCR) NEGATIVE Influenza Type B (PCR) NEGATIVE RSV RNA Qual (PCR) NEGATIVE 01/10/21 01/10/21 01/10/21 11:24 11:24 11:24 MCV MCH MCHC RDW Plt Count MPV Immature Gran % (Auto) Neut % (Auto) Lymph % (Auto) [place] % (Auto) Eos % (Auto) Baso % (Auto) Lymph # (Auto) [place] # (Auto) Eos # (Auto) Baso # (Auto) Abs Immat Gran (auto) Absolute Neuts (auto) Absolute Nucleated RBC Nucleated RBC % (auto) Anion Gap 14 Estim Creat Clear Calc 22.8 Estimated GFR 35 Random Glucose 164 H Estimat Average Glucose Hemoglobin A1c % Lactic Acid 0.9 Calcium 7.8 L Magnesium 2.0 Total Bilirubin 0.2 Direct Bilirubin < 0.2 AST 15 ALT 28 Alkaline Phosphatase 173 H Total Protein 5.5 L Albumin 2.9 L Urine Color Urine Appearance Urine pH Ur Specific [place] Urine Protein Urine Glucose (UA) Urine Ketones Urine Blood Urine Nitrite Ur Leukocyte Esterase Urine RBC Urine WBC Urine WBC Clumps Ur Squamous Epith Cells Urine Bacteria Coronavirus (PCR) Influenza Type A (PCR) Influenza Type B (PCR) RSV RNA Qual (PCR) 01/11/21 01/11/21 01/11/21 06:13 06:13 06:13 MCV 91.3 MCH 28.2 MCHC 30.8 L RDW 15.6 Plt Count TNP MPV Not Reportable Immature Gran % (Auto) Neut % (Auto) Lymph % (Auto) [place] % (Auto) Eos % (Auto) Baso % (Auto) Lymph # (Auto) [place] # (Auto) Eos # (Auto) Baso # (Auto) Abs Immat Gran (auto) Absolute Neuts (auto) Absolute Nucleated RBC 0.000 Nucleated RBC % (auto) 0.0 Anion Gap 16 Estim Creat Clear Calc 30.5 Estimated GFR 50 Random Glucose 94 D Estimat Average Glucose 140 Hemoglobin A1c % 6.5 Lactic Acid Calcium 8.3 L D Magnesium Total Bilirubin Direct Bilirubin AST ALT Alkaline Phosphatase Total Protein Albumin Urine Color Urine Appearance Urine pH Ur Specific [place] Urine Protein Urine Glucose (UA) Urine Ketones Urine Blood Urine Nitrite Ur Leukocyte Esterase Urine RBC Urine WBC Urine WBC Clumps Ur Squamous Epith Cells Urine Bacteria Coronavirus (PCR) Influenza Type A (PCR) Influenza Type B (PCR) RSV RNA Qual (PCR) Microbiology Microbiology Results: Microbiology 01/10/21 11:27 Urine Culture - Preliminary Urine Catheterized - Straight Catheter Gram negative liss Assessment and Plan (1) Acute UTI: Status: Acute Assessment and Plan: ?? 80F presented with fever sepsis present on arrival due to UTI complicated by metabolic encephalopathy and acute kidney injury rocephin IVF monitor bmp follow up cultures chidi resolved urine prelim GNR alzheimers dementia with psychotic features latuda history of DM no longer on meds, a1c 6.5 hld statin history of anorexia resolved, no longer using G tube Quality Stroke Does the patient have a stroke diagnosis?: No VTE Prior VTE?: No VTE Risk Level:: Medical - moderate - high VTE Device Contraindication: Treatment Not Indicated VTE Drug Contraindication: N/A - Med Ordered
[2021-01-11] MEDS: Fluticasone Propionate 100 MCG BLST.W.DEV 2 PUFF INHALE ×2 (10:28→19:47)
[2021-01-11 10:31] VITALS: PULSE 70; O2SAT 95
--- NOTE | 2021-01-11 11:07 | MHC.CM.PN ---
Addendum entered by Rianna Cross 01/11/21 11:13: IMM NOW REQUESTED TO BE SENT VIA CERTIFIED MAIL TO ADDRESS ON FILE IMM PLACED IN ADDRESSED ENVELOPE AND LEFT WITH CM OFFICE Original Note: PATIENT IS UNABLE TO PARTICIPATE IN MEANINGFUL CONVERSATION CALL TO [id number], GIANA ([phone]) GIANA IS AWARE OF IMM AND MEDICARE RIGHTS. IMM LEFT IN PATIENT ROOM FOR PATIENT RETURN TO [facility], WHERE SHE IS A LTC RESIDENT. GIANA IS CONCERNED ABOUT THE PATIENT'S GLASSES, AND THIS EQUAL OPPORTUNITY SPECIALIST WILL ATTEMPT TO LOCATE IMM 01/11 IN CHART. HCP ON FILE IS NO LONGER APPLICABLE, HCP IS . CM TO ATTEMPT TO LOCATE AN UPDATED FORM WITH FACILITY
[2021-01-11 15:32] VITALS: BP 184/73; PULSE 70; RESP 18; TEMP 36.6; O2SAT 95
[2021-01-11] MEDS: Enoxaparin Sodium 40 MG/0.4 ML SYRINGE SUBCUT (16:33)
[2021-01-11] MEDS: Acetaminophen 325 MG TABLET 650 MG PO ×2 (16:33→23:38)
[2021-01-11 19:54] VITALS: PULSE 70; O2SAT 95
[2021-01-11] MEDS: rOPINIRole HCL 0.5 MG TABLET PO (21:00)
[2021-01-11] MEDS: Atorvastatin Calcium 10 MG TABLET PO (21:00)
[2021-01-11] MEDS: Gabapentin 400 MG CAPSULE PO (21:00)
[2021-01-11 23:17] VITALS: BP 134/70; PULSE 61; RESP 14; TEMP 36.2; O2SAT 96
[2021-01-12] MEDS: Lactated Ringers 1,000 ML 80 ML IVCONT (05:18)
[2021-01-12] MEDS: cefTRIAXone sodium 1 GM in 0.9 % Sodium Chloride 50 ML IV (05:18)
[2021-01-12 07:04] LABS: Anion Gap 12 (12-20); Blood Urea Nitrogen 21 mg/dL (9-16); Calcium 8.3 mg/dL (8.4-10.2); Carbon Dioxide 26 mmol/L (22-29); Chloride 107 mmol/L (96-108); Estimated Glomerular Filt Rate 52; Glucose Fasting 114 mg/dL (60-99); Potassium 4.5 mmol/L (3.3-5.1); Sodium 140 mmol/L (135-145)
[2021-01-12] MEDS: Fluticasone Propionate 100 MCG BLST.W.DEV 2 PUFF INHALE (07:51)
[2021-01-12 07:52] VITALS: PULSE 57; O2SAT 96
[2021-01-12 07:56] VITALS: BP 143/66; PULSE 52; RESP 18; TEMP 36.1; O2SAT 99
[2021-01-12 08:03] LABS: Hematocrit 31.1 % (37-47); Hemoglobin 9.9 g/dl (12.0-16.0); Mean Corpuscular HGB Conc 31.8 g/dl (31.0-35.0); Mean Corpuscular Volume 88.1 fL (80-98); Mean Platelet Volume 10.1 fL (9.4-12.3); Platelet Count 251 X10*3/uL (160-400); Red Blood Count 3.53 X10*6/uL (4.20-5.50); Red Cell Distribution Width 15.3 % (11.0-16.0)
[2021-01-12] MEDS: Fluticasone Propionate Nasal 16 GM SPRAY 2 SPRAY NOSTRIL-B (10:31)
[2021-01-12] MEDS: Lurasidone HCl 20 MG TABLET PO (10:31)
[2021-01-12] MEDS: Sodium Chloride Tab 1 GM TABLET PO (10:31)
[2021-01-12] MEDS: Cyanocobalamin (Vitamin B-12) 1,000 MCG TABLET 1000 MCG PO (10:31)
[2021-01-12] MEDS: Lurasidone HCl 40 MG TABLET PO (10:31)
[2021-01-12] MEDS: Aspirin Enteric Coated 81 MG TABLET.DR PO (10:31)
[2021-01-12] MEDS: Magnesium Oxide 400 MG TABLET 800 MG PO (10:31)
[2021-01-12] MEDS: Folic Acid 1 MG TABLET PO (10:31)
[2021-01-12] MEDS: Nystatin Powder 15 GM BOTTLE 1 APPL TOPICAL (10:32)
--- NOTE | 2021-01-12 10:36 | P.DS_ITS ---
DS: Providers Provider Date of Service: 01/12/21 Date of admission: 01/10/21 14:53 Primary care physician: Prosper Natarajan MD DS: Diagnosis Discharge Diagnosis (1) Acute UTI: Status: Acute DS: Medications Discharge Medications Home Medications: Home Medications Medication Instructions Recorded Confirmed acetaminophen 325 mg capsule 650 mg PO Q4H PRN 01/10/21 01/10/21 aluminum-mag hydroxide-simethicone 10 ml PO Q6H PRN 01/10/21 01/10/21 200 mg-200 mg-20 mg/5 mL oral susp (Maalox Advanced) aspirin 81 mg tablet,delayed 81 mg PO DAILY 01/10/21 01/10/21 release cyanocobalamin (vitamin B-12) 1,000 mcg PO DAILY 01/10/21 01/10/21 1,000 mcg tablet fluticasone propionate 110 2 puff INHALATION BID 01/10/21 01/10/21 mcg/actuation HFA aerosol inhaler (Flovent HFA) fluticasone propionate 50 2 spray INTRANASAL BID 01/10/21 01/10/21 mcg/actuation nasal spray,suspension folic acid 1 mg tablet 1 mg PO DAILY 01/10/21 01/10/21 gabapentin 400 mg capsule 1 cap PO BEDTIME 01/10/21 01/10/21 lurasidone 40 mg tablet (Latuda) 1 tab PO BEDTIME 01/10/21 01/10/21 lurasidone 60 mg tablet (Latuda) 1 tab PO DAILY 01/10/21 01/10/21 magnesium oxide 800 mg PO DAILY 01/10/21 01/10/21 multivitamin with minerals-ferrous 1 tab PO DAILY 01/10/21 01/10/21 sulfate 15 mg iron tablet nystatin 100,000 unit/gram topical 1 applic TOPICAL BID-TID 01/10/21 01/10/21 powder (Nystop) peg 400-propylene glycol 0.4 %-0.3 2 drp OPHTHALMIC (EYE) Q4H PRN 01/10/21 01/10/21 % eye gel drops (Systane Gel) ropinirole 0.5 mg tablet 1 tab PO BEDTIME 01/10/21 01/10/21 simvastatin 20 mg tablet 1 tab PO BEDTIME 01/10/21 01/10/21 sodium chloride 1,000 mg soluble 1,000 mg PO BID 01/10/21 01/10/21 tablet Previous Rx's Medication Instructions Recorded cefuroxime axetil 500 mg tablet 500 mg PO BID #10 tab 01/12/21 DS: Summary Hospital Course Hospital Course: Patient was admitted for sepsis and metabolic encephalopathy due to urinary tract infection complicated by acute kidney injury Urine culture grew E coli that was pansensitive, blood cultures were negative. She was given IV fluids and ceftriaxone, sepsis resolved, metabolic encephalopathy resolved, acute kidney injury resolved. Patient will be [facility] facility with 5 more days of cefuroxime. Time Spent with Patient Time attestation: Total time spent providing and/or coordinating discharge services: Discharge coordination time: Greater than 30 minutes Quality: Stroke Does the patient have a stroke diagnosis?: No Physical Exam Vital Signs: Vital Signs: Last Vital Signs Temp 96.9 F 01/12/21 07:56 Pulse 52 01/12/21 07:56 Resp 18 01/12/21 07:56 BP 143/66 H 01/12/21 07:56 Pulse Ox 99 01/12/21 07:56 Body Mass Index 34.4 General: letharigc O X 3, no acute distress Resp:? CTA bilateral CVS: S1,S2,RRR GI: soft, non tender, non distended Neuro:? motor grossly intact Psych: appropriate affect DS: Data Data Completed and Pending Labs on day of discharge: Laboratory Results - last 24 hr 01/12/21 01/12/21 06:16 07:35 WBC 9.0 RBC 3.53 L Hgb 9.9 L Hct 31.1 L MCV 88.1 MCH 28.0 MCHC 31.8 RDW 15.3 Plt Count 251 MPV 10.1 Absolute Nucleated RBC 0.000 Nucleated RBC % (auto) 0.0 Sodium 140 Potassium 4.5 Chloride 107 Carbon Dioxide 26 Anion Gap 12 BUN 21 H Creatinine 1.01 Estim Creat Clear Calc 32.0 Estimated GFR 52 Fasting Glucose 114 H Calcium 8.3 L Preliminary micro results at discharge 01/10/21 10:35 Blood Culture - Preliminary Blood - Venous No growth after 24 hours. 01/10/21 10:01 Blood Culture - Preliminary Blood - Venous No growth after 24 hours. Discharge Plan Discharge Patient Disposition: er SNF Discharge Diagnosis: uti, chidi Referrals: [facility] [Outside] - 1 Week Prosper Natarajan MD [Primary Care Provider] - 1 Week Discharge Medications: New cefuroxime axetil 500 mg tablet 500 mg PO BID Qty: 10 RF: 0 Continued gabapentin 400 mg capsule 1 cap PO BEDTIME RF: 0 simvastatin 20 mg tablet 1 tab PO BEDTIME RF: 0 ropinirole 0.5 mg tablet 1 tab PO BEDTIME RF: 0 nystatin [Nystop] 100,000 unit/gram powder 1 applic topical BID-TID RF: 0 Flovent HFA 110 mcg/actuation HFA aerosol inhaler 2 puff inhalation BID RF: 0 Latuda 40 mg tablet 1 tab PO BEDTIME RF: 0 Latuda 60 mg tablet 1 tab PO DAILY RF: 0 cyanocobalamin (vitamin B-12) 1,000 mcg Tablet 1,000 mcg PO DAILY RF: 0 aspirin 81 mg Tablet,Delayed Release (Dr/Ec) 81 mg PO DAILY RF: 0 folic acid 1 mg Tablet 1 mg PO DAILY RF: 0 alum-mag hydroxide-simeth [Maalox Advanced] 200-200-20 mg/5 mL Suspension 10 ml PO Q6H PRN (Reason: Heartburn) RF: 0 fluticasone propionate 50 mcg/actuation [place],Suspension 2 spray INTRANASAL BID RF: 0 sodium chloride 1,000 mg Tablet,Soluble 1,000 mg PO BID RF: 0 acetaminophen 325 mg Capsule 650 mg PO Q4H PRN (Reason: Pain (Scale Score 1-3)) RF: 0 Systane Gel 0.4-0.3 % Drops,Gel 2 drp OPHTHALMIC (EYE) Q4H PRN (Reason: TEARING EYES) RF: 0 magnesium oxide 400 mg magnesium Tablet 800 mg PO DAILY RF: 0 [id number] sulfate 15 mg iron Tablet 1 tab PO DAILY RF: 0 Discharge Orders: Discharge Order (Routine); Ordered 01/12/21 Ordered By: Bertrand Roman Diet: advance to usual diet Activity on Discharge: As tolerated Stand Alone Forms: Patient Portal Discharge page Care Plan Goals: [facility] Concerns: uti, chidi Plan of Treatment: ceftin 5 more days Assessment: see above
--- NOTE | 2021-01-12 10:53 | MHC.CM.PN ---
PT CLEARED TO DC BACK TO SNF TODAY. UPDATES SENT TO [facility]. CM WILL CONTACT DAUGHTER IN LAW AND INFORM HER OF PENDING DC ONCE TIME IS KNOWN. PT WILL BE TRANSPORTED VIA S
--- NOTE | 2021-01-12 11:55 | MHC.CM.PN ---
PT CLEARED TO RETURN LTC FACILITY TODAY. CM CONTACTED PTS DAUGHTER IN LAW, GIANA ([phone]) AND INFORMED HER OF DC AND TIME. PT WILL DC BACK TO [facility] TODAY AT 2PM VIA BLS
== END 2021-01-12 14:09 | disposition skilled nursing facility (03) | DRG 871 ==
LOC: HO.ED 12:06 → HO.EDOVER 15:08 → HO.S3 16:05
PROVIDERS: Physician Assistant; Admitting Provider Internal Medicine; Emergency Provider Emergency Medicine Emergency Medical Services; PCP Internal Medicine; Visit Provider Internal Medicine
DX: A41.9 Sepsis, unspecified organism (principal); G93.41 Metabolic encephalopathy; N39.0 Urinary tract infection, site not specified; N17.9 Acute kidney failure, unspecified; F06.2 Psychotic disorder with delusions due to known physiological condition; G30.9 Alzheimer's disease, unspecified; F02.80 Dementia in other diseases classified elsewhere, unspecified severity, without behavioral disturbance, psychotic disturbance, mood disturbance, and anxiety; E78.5 Hyperlipidemia, unspecified; B96.20 Unspecified Escherichia coli [E. coli] as the cause of diseases classified elsewhere; Z20.822 Contact with and (suspected) exposure to COVID-19; E11.9 Type 2 diabetes mellitus without complications; Z87.440 Personal history of urinary (tract) infections; Z88.0 Allergy status to penicillin; Z88.5 Allergy status to narcotic agent; Z88.6 Allergy status to analgesic agent; Z79.82 Long term (current) use of aspirin; Z79.51 Long term (current) use of inhaled steroids; Z79.899 Other long term (current) drug therapy
CPT/HCPCS: 0241U; 36415; 71045; 80048; 80076; 81001; 83036; 83605; 83735; 85025; 85027; 87040; 87086; 87088; 87186; 94640; 99285; J0696; J1650

== ENCOUNTER 2021-08-28 19:24 | Emergency (ER) | payer MEDICARE, MEDICAID, SELFPAY ==
[2021-08-28] VITALS (11 sets, daily range): BP systolic 93–180; BP diastolic 44–91; PULSE 81–110; RESP 16–98; TEMP 37.2–39.3; O2SAT 94–97; BMI 27.6
--- NOTE | ~2021-08-28 | XR_ITS ---
EXAMINATION: XR CHEST CLINICAL INFORMATION: Fever COMPARISON: 01/10/2021 TECHNIQUE: Frontal view of the chest was obtained. FINDINGS: No convincing evidence for an acute process. Lung early are grossly clear comparable to previous. No failure or effusion. The cardiac silhouette is comparable. XR/XR chest 1V IMPRESSION: No acute finding.
--- NOTE | 2021-08-28 20:10 | ED.GENADULT ---
HPI - General Adult General Chief complaint: General Medical Stated complaint: cold symptoms Time Seen by Provider: 08/28/21 19:56 Source: patient and RN notes reviewed Limitations: altered mental status History of Present Illness HPI narrative: This is an 81-year-old female who resides at a long term facility who has had vomiting since early this morning and also developed a fever. She supposedly has had ?cold symptoms? she was noted to have a temperature of 103.4 degrees at her nursing facility, cold symptoms in last 24 hours, multiple episodes of nausea and vomiting, diarrhea, poor appetite. She has had loose bowel movements daily. She had a chest x-ray this morning that was negative per the group home report. Patient has history of delusional disorders, she is wheelchair-bound, has essential hypertension, hyperlipidemia, restless leg syndrome, anemia, diarrhea, dysphagia, psychotic disorder with delusions, weakness. She is not DNR or DNI radiology report of two view chest x-ray done earlier today. States no acute cardiopulmonary disease, unchanged from 08/22/2020. There is a MOLST form on the chart stating attempt resuscitation and intubate and ventilate, use noninvasive ventilation, transferred to hospital. The patient herself is poor historian. She denies any pain. She denies any headache or abdominal pain, she does state that she was vomiting early this morning. Related Data Home Medications Medication Instructions Recorded Confirmed acetaminophen 325 mg capsule 650 mg PO Q4H PRN 01/10/21 01/10/21 aluminum-mag hydroxide-simethicone 10 ml PO Q6H PRN 01/10/21 01/10/21 200 mg-200 mg-20 mg/5 mL oral susp (Maalox Advanced) aspirin 81 mg tablet,delayed 81 mg PO DAILY 01/10/21 01/10/21 release cyanocobalamin (vitamin B-12) 1,000 mcg PO DAILY 01/10/21 01/10/21 1,000 mcg tablet fluticasone propionate 110 2 puff INHALATION BID 01/10/21 01/10/21 mcg/actuation HFA aerosol inhaler (Flovent HFA) fluticasone propionate 50 2 spray INTRANASAL BID 01/10/21 01/10/21 mcg/actuation nasal spray,suspension folic acid 1 mg tablet 1 mg PO DAILY 01/10/21 01/10/21 gabapentin 400 mg capsule 1 cap PO BEDTIME 01/10/21 01/10/21 lurasidone 40 mg tablet (Latuda) 1 tab PO BEDTIME 01/10/21 01/10/21 lurasidone 60 mg tablet (Latuda) 1 tab PO DAILY 01/10/21 01/10/21 magnesium oxide 800 mg PO DAILY 01/10/21 01/10/21 multivitamin with minerals-ferrous 1 tab PO DAILY 01/10/21 01/10/21 sulfate 15 mg iron tablet nystatin 100,000 unit/gram topical 1 applic TOPICAL BID-TID 01/10/21 01/10/21 powder (Nystop) peg 400-propylene glycol 0.4 %-0.3 2 drp OPHTHALMIC (EYE) Q4H PRN 01/10/21 01/10/21 % eye gel drops (Systane Gel) ropinirole 0.5 mg tablet 1 tab PO BEDTIME 01/10/21 01/10/21 simvastatin 20 mg tablet 1 tab PO BEDTIME 01/10/21 01/10/21 sodium chloride 1,000 mg soluble 1,000 mg PO BID 01/10/21 01/10/21 tablet Previous Rx's Medication Instructions Recorded cefuroxime axetil 500 mg tablet 500 mg PO BID #10 tab 01/12/21 ondansetron 4 mg disintegrating 4 mg PO Q8H PRN #10 tab 08/28/21 tablet oseltamivir 75 mg capsule (Tamiflu) 75 mg PO BID 5 Days #10 cap 08/28/21 Allergies Allergy/AdvReac Type Severity Reaction Status Date / Time Penicillins Allergy Mild UNKNOWN Verified 01/10/21 17:20 lisinopril [LISINOPRIL] Allergy Unknown COUGH Verified 01/10/21 17:20 morphine [MORPHINE] Allergy Unknown YRS AGO ? Verified 01/10/21 17:20 N/V penicillin V Allergy Unknown Unknown Verified 01/10/21 17:20 celecoxib [From CELEBREX] AdvReac Unknown GI UPSET Verified 01/10/21 17:20 Review of Systems Review of Systems: As per HPI Yes Unobtainable due to mental status (Limited) Constitutional: Constitutional: Reports fever(s) and Denies headache(s) ENT: Denies headache(s) Respiratory: Respiratory: Reports no additional respiratory complaints Gastrointestinal: Gastrointestinal: Denies abdominal pain, Reports diarrhea, Reports nausea and Reports vomiting Neurologic: Denies headache(s) [facility] Past Medical History Medical History Acute kidney failure Alzheimer disease Anemia Anorexia Aphasia Diabetes Hyperlipemia Unspecified psychosis Social History Social History Household Members Other:: SNF Housing: Assisted Living Facility Patient Tobacco Use Status: Never used Tobacco Advance Directives: Yes Advance Directives on File: Yes Advance Directives Date on File: 01/10/21 service: No Current occupational status: disabled Physical Exam ED Vital Signs: Vital Signs - 24 hr 08/28/21 19:37 08/28/21 20:23 08/28/21 20:30 Temperature 101.1 F H 102.8 F H Pulse Rate 101 H 98 98 Respiratory Rate 25 H 22 H 98 H Blood Pressure 124/63 118/55 L 105/52 L Pulse Oximetry 97 96 97 08/28/21 20:52 08/28/21 22:00 08/28/21 22:06 Temperature 99.8 F Pulse Rate 98 99 95 Respiratory Rate 20 18 16 Blood Pressure 103/50 L 103/56 L 102/56 L Pulse Oximetry 96 96 95 08/28/21 22:47 08/28/21 23:17 08/28/21 23:30 Temperature Pulse Rate 84 81 Respiratory Rate 18 17 17 Blood Pressure 93/47 L 93/44 L Pulse Oximetry 96 97 96 08/28/21 23:48 08/28/21 23:49 08/29/21 01:08 Temperature 98.9 F Pulse Rate 88 81 67 Respiratory Rate 17 17 19 Blood Pressure 110/56 L 110/56 L 103/49 L Pulse Oximetry 96 94 BMI result Body Mass Index 27.6 Const Other: Patient in no distress, not for a articulate or verbose and answering questions, moderately obese General: no acute distress Orientation/consciousness: patient oriented x3 HENMT Head: Yes normal to inspection General nose exam: Normal external nose present Mouth: moist mucous membranes Throat: Yes posterior oropharynx normal, Yes tonsils normal and Yes uvula midline Eyes Eyelids: Yes eyelids normal Conjunctivae: conjunctivae normal Pupils: Equal, round and reactive pupils present Neck Neck: Yes supple Resp Effort & Inspection: normal respiratory effort Auscultation: clear to auscultation bilaterally Cardio Rate: regular rate Rhythm: regular rhythm Heart sounds: S1 normal heart sound present, S2 normal heart sound present, no gallops, no murmurs and no rubs GI Inspection: No distended Palpation (GI): Soft to palpation and nontender Auscultation: normal bowel sounds Skin General skin exam: other (Warm and dry) Neuro General: patient oriented x3 and CN's II-XI intact bilaterally Cranial nerves: Yes Equal, round and reactive pupils present Extrem General: Yes no pedal edema Psych Affect: normal affect Attitude: cooperative Medical Decision Making [facility] Narrative Medical decision making narrative: Patient sent in for URI symptoms, cough, vomiting diarrhea. Patient does have chronic diarrhea. Patient did have fever to 103 at the group home and was febrile hears well. Sepsis workup done and came up positive only for influenza A. This does fit with the patient's symptoms and physical exam. Patient will be started on Tamiflu, Zofran for nausea and vomiting. Patient was given acetaminophen here in the ED, normal sodium 2 L IV, Zofran, Tamiflu. Patient is safe for outpatient treatment at her long term facility Lab Data Lab results reviewed: Yes I reviewed the patient's lab results. Result diagrams: 08/28/21 20:19 08/28/21 20:19 Labs: Lab Results 08/28/21 08/28/21 08/28/21 Range/Units 19:23 20:19 20:19 WBC 10.2 (4.8-10.8) X10*3/uL RBC 4.05 L (4.20-5.50) X10*6/uL Hgb 11.9 L (12.0-16.0) g/dl Hct 36.4 L (37.0-47.0) % MCV 89.9 (80.0-98.0) fL MCH 29.4 (27.0-33.0) pg MCHC 32.7 (31.0-35.0) g/dl RDW 13.5 (11.0-16.0) % Plt Count 246 (160-400) X10*3/uL MPV 9.6 (9.4-12.3) fL Immature Gran % (Auto) 0.4 (0.0-0.4) % Neut % (Auto) 86.3 H (45-73) % Lymph % (Auto) 4.1 L (20-40) % [place] % (Auto) 8.9 (2-11) % Eos % (Auto) 0.2 (0-4) % Baso % (Auto) 0.1 (0-2) % Lymph # (Auto) 0.4 L (1.2-4.9) X10*3/uL [place] # (Auto) 0.9 (0.1-1.2) X10*3/uL Eos # (Auto) 0.0 (0.0-0.4) X10*3/uL Baso # (Auto) 0.0 (0.0-0.2) X10*3/uL Abs Immat Gran (auto) 0.04 H (0.00-0.03) X10*3/uL Absolute Neuts (auto) 8.8 H (2.0-8.3) x10*3/uL Absolute Nucleated RBC 0.000 (0.0-0.012) X10*3/uL Nucleated RBC % (auto) 0.0 (0.0-0.2) /100WBC PT (9.9-13.0) SEC INR (0.9-1.1) APTT (24.1-38.0) SEC Sodium (135-145) mmol/L Potassium (3.3-5.1) mmol/L Chloride (96-108) mmol/L Carbon Dioxide (22-29) mmol/L Anion Gap (12-20) BUN (9-16) mg/dL Creatinine (0.5-1.4) mg/dL Estim Creat Clear Calc Estimated GFR Random Glucose (60-115) mg/dL Lactic Acid 0.8 (0.5-2.0) mmol/L Calcium (8.4-10.2) mg/dL Urine Color Urine Appearance Urine pH (5.0-8.0) Ur Specific [place] (1.005-1.025) Urine Protein (NEG-TRACE) MG/DL Urine Glucose (UA) (NEG) MG/DL Urine Ketones (NEG) MG/DL Urine Blood (NEG) Urine Nitrite (NEG) Ur Leukocyte Esterase (NEG) Urine RBC (0) /HPF Urine WBC (0-4) /HPF Ur Squamous Epith Cells /LPF Amorphous Sediment /LPF Urine Bacteria /LPF Granular Casts /LPF Urine Mucus /LPF Influenza Type A (PCR) POSITIVE A (Negative) Influenza Type B (PCR) NEGATIVE (Negative) RSV RNA Qual (PCR) NEGATIVE (Negative) SARS-CoV-2 RNA (RT-PCR) NEGATIVE (Negative) 08/28/21 08/28/21 08/28/21 Range/Units 20:19 20:19 23:44 WBC (4.8-10.8) X10*3/uL RBC (4.20-5.50) X10*6/uL Hgb (12.0-16.0) g/dl Hct (37.0-47.0) % MCV (80.0-98.0) fL MCH (27.0-33.0) pg MCHC (31.0-35.0) g/dl RDW (11.0-16.0) % Plt Count (160-400) X10*3/uL MPV (9.4-12.3) fL Immature Gran % (Auto) (0.0-0.4) % Neut % (Auto) (45-73) % Lymph % (Auto) (20-40) % [place] % (Auto) (2-11) % Eos % (Auto) (0-4) % Baso % (Auto) (0-2) % Lymph # (Auto) (1.2-4.9) X10*3/uL [place] # (Auto) (0.1-1.2) X10*3/uL Eos # (Auto) (0.0-0.4) X10*3/uL Baso # (Auto) (0.0-0.2) X10*3/uL Abs Immat Gran (auto) (0.00-0.03) X10*3/uL Absolute Neuts (auto) (2.0-8.3) x10*3/uL Absolute Nucleated RBC (0.0-0.012) X10*3/uL Nucleated RBC % (auto) (0.0-0.2) /100WBC PT 12.3 (9.9-13.0) SEC INR 1.1 (0.9-1.1) APTT 38.5 H (24.1-38.0) SEC Sodium 135 (135-145) mmol/L Potassium 5.0 (3.3-5.1) mmol/L Chloride 100 (96-108) mmol/L Carbon Dioxide 25 (22-29) mmol/L Anion Gap 15 (12-20) BUN 31 H (9-16) mg/dL Creatinine 1.23 (0.5-1.4) mg/dL Estim Creat Clear Calc 26.5 Estimated GFR 42 Random Glucose 193 H (60-115) mg/dL Lactic Acid (0.5-2.0) mmol/L Calcium 9.2 D (8.4-10.2) mg/dL Urine Color YELLOW Urine Appearance HAZY Urine pH 5.0 (5.0-8.0) Ur Specific [place] >= 1.030 H (1.005-1.025) Urine Protein 2+ H (NEG-TRACE) MG/DL Urine Glucose (UA) NEG (NEG) MG/DL Urine Ketones NEG (NEG) MG/DL Urine Blood 1+ H (NEG) Urine Nitrite NEG (NEG) Ur Leukocyte Esterase NEG (NEG) Urine RBC 1-4 (0) /HPF Urine WBC 0-2 (0-4) /HPF Ur Squamous Epith Cells 2+ /LPF Amorphous Sediment 2+ /LPF Urine Bacteria 1+ /LPF Granular Casts 0-2 /LPF Urine Mucus 1+ /LPF Influenza Type A (PCR) (Negative) Influenza Type B (PCR) (Negative) RSV RNA Qual (PCR) (Negative) SARS-CoV-2 RNA (RT-PCR) (Negative) Imaging Data Chest x-ray: Radiologist's impression: FINDINGS: No convincing evidence for an acute process. Lung early are grossly clear comparable to previous. No failure or effusion. The cardiac silhouette is comparable. Discharge Plan Discharge Clinical Impression: Influenza A Patient Disposition: Xfer LTC Instructions: Influenza (ED) Additional Instructions: Give acetaminophen 650 mg p.o. or p.r. every 4 hours as needed for fever. Use the ondansetron as needed for nausea and vomiting. Use the Tamiflu to treat the influenza.. Encourage fluids. Return for any worsened symptoms such as inability to hold down fluids, cough or shortness of breath Prescriptions: New oseltamivir [Tamiflu] 75 mg capsule 75 mg PO BID 5 Days Qty: 10 0RF ondansetron 4 mg tablet,disintegrating 4 mg PO Q8H PRN (Reason: nausea and vomiting) Qty: 10 0RF No Action gabapentin 400 mg capsule 1 cap PO BEDTIME 0RF simvastatin 20 mg tablet 1 tab PO BEDTIME 0RF ropinirole 0.5 mg tablet 1 tab PO BEDTIME 0RF nystatin [Nystop] 100,000 unit/gram powder 1 applic topical BID-TID 0RF Flovent HFA 110 mcg/actuation HFA aerosol inhaler 2 puff inhalation BID 0RF Latuda 40 mg tablet 1 tab PO BEDTIME 0RF Latuda 60 mg tablet 1 tab PO DAILY 0RF cyanocobalamin (vitamin B-12) 1,000 mcg Tablet 1,000 mcg PO DAILY 0RF aspirin 81 mg Tablet,Delayed Release (Dr/Ec) 81 mg PO DAILY 0RF folic acid 1 mg Tablet 1 mg PO DAILY 0RF alum-mag hydroxide-simeth [Maalox Advanced] 200-200-20 mg/5 mL Suspension 10 ml PO Q6H PRN (Reason: Heartburn) 0RF fluticasone propionate 50 mcg/actuation [place],Suspension 2 spray INTRANASAL BID 0RF sodium chloride 1,000 mg Tablet,Soluble 1,000 mg PO BID 0RF acetaminophen 325 mg Capsule 650 mg PO Q4H PRN (Reason: Pain (Scale Score 1-3)) 0RF Systane Gel 0.4-0.3 % Drops,Gel 2 drp OPHTHALMIC (EYE) Q4H PRN (Reason: TEARING EYES) 0RF magnesium oxide 400 mg magnesium Tablet 800 mg PO DAILY 0RF [id number] sulfate 15 mg iron Tablet 1 tab PO DAILY 0RF cefuroxime axetil 500 mg tablet 500 mg PO BID Qty: 10 0RF
[2021-08-28 20:26] LABS: MANUAL DIFF FLAG NO
[2021-08-28 20:28] LABS: Basophils Percent Auto 0.1 % (0-2); Eosinophils Percent Auto 0.2 % (0-4); Hematocrit 36.4 % (37.0-47.0); Hemoglobin 11.9 g/dl (12.0-16.0); Imm Gran Abs Auto 0.04 X10*3/uL (0.00-0.03); Imm Gran Pct Auto 0.4 % (0.0-0.4); Lymphocytes Absolute Auto 0.4 X10*3/uL (1.2-4.9); Lymphocytes Percent Auto 4.1 % (20-40); Mean Corpuscular HGB Conc 32.7 g/dl (31.0-35.0); Mean Corpuscular Hemoglobin 29.4 pg (27.0-33.0); Mean Corpuscular Volume 89.9 fL (80.0-98.0); Mean Platelet Volume 9.6 fL (9.4-12.3); Monocytes Absolute Auto 0.9 X10*3/uL (0.1-1.2); Monocytes Percent Auto 8.9 % (2-11); Neutrophils Absolute Auto 8.8 x10*3/uL (2.0-8.3); Neutrophils Percent Auto 86.3 % (45-73); Platelet Count 246 X10*3/uL (160-400); Red Blood Count 4.05 X10*6/uL (4.20-5.50); Red Cell Distribution Width 13.5 % (11.0-16.0); White Blood Count 10.2 X10*3/uL (4.8-10.8)
[2021-08-28 20:33] LABS: INTERNATIONAL NORM RATIO 1.1 (0.9-1.1); Prothrombin Time 12.3 SEC (9.9-13.0)
[2021-08-28] MEDS: ondansetron HCL 4 MG/2 ML VIAL IVPUSH (20:35)
[2021-08-28] MEDS: Acetaminophen 325 MG TABLET 650 MG PO (20:35)
[2021-08-28 20:36] LABS: Partial Thromboplastin Time 38.5 SEC (24.1-38.0)
[2021-08-28 20:40] LABS: Lactic Acid 0.8 mmol/L (0.5-2.0)
[2021-08-28 20:41] LABS: Influenza A PCR POSITIVE (Negative); Influenza B PCR NEGATIVE (Negative); Resp Syncy Virus RNA Qual PCR NEGATIVE (Negative); SARS COV2 PCR INHOUSE NEGATIVE (Negative)
[2021-08-28 20:42] LABS: Anion Gap 15 (12-20); Blood Urea Nitrogen 31 mg/dL (9-16); Calcium 9.2 mg/dL (8.4-10.2); Carbon Dioxide 25 mmol/L (22-29); Chloride 100 mmol/L (96-108); Creatinine Clr Calc Pharmacy 26.5; Estimated Glomerular Filt Rate 42; Glucose Random 193 mg/dL (60-115); Sodium 135 mmol/L (135-145)
[2021-08-28] MEDS: Oseltamivir Phosphate 75 MG CAPSULE PO (22:05)
--- NOTE | 2021-08-29 00:12 | PC.NURSE ---
provider has been made aware of the blood pressures, pt is flu positive, plan is to go back to facility once the urine comes back.
[2021-08-29 01:08] VITALS: BP 103/49; PULSE 67; RESP 19; O2SAT 94
[2021-08-29 01:37] LABS: Appearance Urine HAZY; Color Urine YELLOW; Glucose Urine UA NEG (NEG); Leukocyte Esterase Urine NEG (NEG); Nitrite Urine NEG (NEG); Specific Gravity - Urine >= 1.030 (1.005-1.025); UACC Culture Trigger NO; Urine Blood 1+ (NEG); Urine Ketones NEG (NEG); Urine Protein 2+ MG/DL (NEG-TRACE)
[2021-08-29 01:46] LABS: Amorphous Sediment Urine 2+ /LPF; Bacteria Urine 1+ /LPF; Granular Casts Urine 0-2 /LPF; Mucus Urine 1+ /LPF; Squamous Epithelial Cell Urine 2+ /LPF; WBC Urine 0-2 /HPF (0-4)
[2021-08-29 02:49] VITALS: BP 111/53; PULSE 66; RESP 14; O2SAT 98
--- NOTE | 2021-08-29 02:57 | PC.NURSE ---
waiting for ambulance to arrive. nurse to nurse report given to Rober grant at [id number].
== END 2021-08-29 03:11 ==
PROVIDERS: Emergency Provider Emergency Medicine
DX: J11.1 Influenza due to unidentified influenza virus with other respiratory manifestations (principal); R11.2 Nausea with vomiting, unspecified; R82.79 Other abnormal findings on microbiological examination of urine; Z20.822 Contact with and (suspected) exposure to COVID-19
CPT/HCPCS: 0241U; 36415; 71045; 80048; 81001; 83605; 85025; 85610; 85730; 87040; 87086; 87088; 87186; 96361; 96374; 99284; J2405